=== PATIENT | male | born 1950 | race Caucasian/White ===

== ENCOUNTER 2016-07-11 02:30 | Inpatient (IN) | payer MEDICARE ==
[2016-07-11] VITALS (8 sets, daily range): BP systolic 97–164; BP diastolic 56–77; PULSE 83–99; RESP 15–20; TEMP 97.8–99.7; O2SAT 95–100
[~2016-07-11] VITALS: Ht 172.7 cm; Wt 68.2 kg
[2016-07-11] MEDS ORDERED: ALPR.5 PO (02:59)
[2016-07-11] MEDS ORDERED: LISI40TA PO (02:59)
[2016-07-11] MEDS ORDERED: AMLO5TAB2 PO (02:59)
[2016-07-11] MEDS ORDERED: HYDR-3535 PO (02:59)
[2016-07-11] MEDS ORDERED: MORPHINE SULFATE 4 MG/ML INJ IV PUSH ONE ×2 (03:00→07:15)
[2016-07-11] MEDS ORDERED: AMPICILLIN-SULBACTAM INJ 3 GM in SODIUM CHLORIDE 0.9% INJ 100 ML IV ONE (03:00)
[2016-07-11 03:37] LABS: AUTOMATED NEUTROPHIL # 14.7 TH/MM3 (1.8-7.7); BASOPHIL # 0.1 TH/MM3 (0-0.2); BASOPHIL % 0.4 % (0.0-2.0); EOSINOPHIL # 0.2 TH/MM3 (0-0.4); EOSINOPHIL % 0.8 % (0.0-4.0); HEMATOCRIT 40.1 % (39.0-51.0); HEMO FLAGS DIFF FINAL; LYMPH % 15.1 % (9.0-44.0); LYMPHOCYTE # 2.9 TH/MM3 (1.0-4.8); MEAN CELL VOLUME 95.9 FL (80.0-100.0); MEAN CORPUSCULAR HEMOGLOBIN 32.8 PG (27.0-34.0); MEAN CORPUSCULAR HGB CONC 34.2 % (32.0-36.0); MONO % 6.7 % (0.0-8.0); PLATELET COUNT 249 TH/MM3 (150-450); RED BLOOD COUNT 4.17 MIL/MM3 (4.50-5.90); RED CELL DISTRIBUTION WIDTH 13.6 % (11.6-17.2); WHITE BLOOD COUNT 19.1 TH/MM3 (4.0-11.0)
[2016-07-11 03:53] LABS: ALT (GPT) 21 U/L (12-78); ANION GAP 12 MEQ/L (5-15); AST (GOT) 20 U/L (15-37); BICARBONATE 23.5 MEQ/L (21.0-32.0); BLOOD UREA NITROGEN 15 MG/DL (7-18); CHLORIDE 105 MEQ/L (98-107); GLOMERULAR FILTRATION RATE 49 ML/MIN (>89); POTASSIUM 3.6 MEQ/L (3.5-5.1); SODIUM (NA) 140 MEQ/L (136-145)
[2016-07-11 03:55] LABS: ALKALINE PHOSPHATASE 52 U/L (45-117); TOTAL BILIRUBIN ADULT 0.2 MG/DL (0.2-1.0)
[2016-07-11] MEDS ORDERED: IOHEXOL 350 MG/ML 10 ML VIAL (for RAD DIAG) IV ONE (04:18)
--- NOTE | 2016-07-11 06:11 | RADRPT ---
EXAM DATE/TIME: 07/11/2016 04:14 [facility] COMPARISON: No previous studies available for comparison. INDICATIONS : Trauma, unknown trauma to left lower leg. IV CONTRAST: 100 cc Omnipaque 350 (iohexol) IV RADIATION DOSE: 2.32 CTDIvol (mGy) MEDICAL HISTORY : None SURGICAL HISTORY : None. ENCOUNTER: Initial ACUITY: 1 day PAIN SCALE: 8/10 LOCATION: Left lower leg TECHNIQUE: Volumetric scanning was performed using a multi-row detector CT scanner. The data was post processed with a variety of visualization algorithms including full volume maximum intensity projection, multi -planar sliding thin slab reformation, curved planar reformation, and surface rendering techniques. Using automated exposure control and adjustment of the mA and/or kV according to patient size, radiat ion dose was kept as low as reasonably achievable to obtain optimal diagnostic quality images. FINDINGS: The liver and spleen are free of focal defects. The gallbladder and pancreas demonstrate no abnormali ty. The adrenal glands are normal. The kidneys demonstrate no evidence of solid renal mass or hydrone phrosis. No free fluid or abdominal masses are identified. No para-aortic adenopathy is seen. The aorta is normal in caliber. There is no evidence of aneurysm or dissection. The renal artery orig ins are patent bilaterally. The celiac axis and superior mesenteric artery origins are also patent. Examination of the right lower extremity demonstrates no evidence of inflow stenosis. The common femo ral artery is patent. The superficial femoral artery is widely patent. The popliteal segment is unrem arkable. There is three-vessel runoff to the ankle. Examination of the left lower extremity demonstrates no evidence of inflow stenosis. The common femor al artery is patent. The superficial femoral artery is widely patent. The popliteal segment is unrema rkable. There is three-vessel runoff to the ankle. There is gas within subcutaneous tissues of the le ft lower leg as well as possibly within the muscle characteristics of infection. No bone destruction is seen. CONCLUSION: 1. Unremarkable off the lower extremities. 2. Gas in the soft tissues of the lower leg on the left which is characteristic of infection. This ex tends into the muscular compartment. MRI is recommended for further evaluation if clinically indicate d. Abdullahi Martinez MD on July 11, 2016 at 6:01 Board Certified Radiologist. This report was verified electronically.
--- NOTE | 2016-07-11 07:17 | PD ---
HPI Chief Complaint: Laceration/Skin Injury Time Seen by Provider: 02:56 Travel History International Travel<30 days: No Contact w/Intl Traveler<30days: No Traveled to known affect area: No History of Present Illness HPI Patient is a 66-year-old male brought in by EMS for a wound to his leg. He says he fell tonight sustaining the wound. EMS states there was a large amount of blood on scene and a very angry pitbull that had to be detained before they could enter the house. Patient denies any other injuries. He does admit to drinking tonight. He has no other complaints and the pain to his left leg. PFSH Past Medical History Hypertension: Yes Tetanus Vaccination: Unknown Influenza Vaccination: No Past Surgical History Neurologic Surgery: Yes (TMV) Social History Alcohol Use: Yes Tobacco Use: Yes Substance Use: Yes (WEED) Allergies-Medications (Allergen,Severity, Reaction): Coded Allergies: Erythromycin (Verified Allergy, Unknown, 07/11/16) Reported Meds & Prescriptions Reported Meds & Active Scripts Active Reported Amlodipine (Amlodipine Besylate) 5 Mg Tab 5 Mg PO DAILY Lisinopril 40 Mg Tab 40 Mg PO DAILY Xanax (Alprazolam) 0.5 Mg Tab 0.5 Mg PO BID PRN Lortab (Hydrocodone-Acetaminophen) 10-325 Mg Tab 1 Tab PO Q6H PRN Review of Systems Except as stated in HPI: all other systems reviewed are Neg General / Constitutional: No: Fever, Chills HENT: No: Headaches Cardiovascular: No: Chest Pain or Discomfort Respiratory: No: Shortness of Breath Gastrointestinal: No: Nausea, Vomiting Genitourinary: No: Dysuria Musculoskeletal: Positive: Pain Skin: Positive Other (wound) Neurologic: No: Weakness, Dizziness Physical Exam Narrative GENERAL: Awake and alert in no acute distress. SKIN: Warm and dry. HEAD: Atraumatic. Normocephalic. EYES: Pupils equal and round. No scleral icterus. ENT: Mucous membranes pink and moist. NECK: Trachea midline. No JVD. CARDIOVASCULAR: Regular rate and rhythm. No murmur appreciated. RESPIRATORY: No accessory muscle use. Clear to auscultation. Breath sounds equal bilaterally. MUSCULOSKELETAL: 3 large wounds to the left lower leg. Gaping skin on the lateral side of the left leg with muscle distraction, several exposed tendons. Gaping wound on the medial side of the leg with exposed muscle. Smaller wound to the back of the calf with a serrated skin. Pedal pulses intact. Patient able to dorsiflex and plantarflex the left foot. He is able to wiggle his toes. NEUROLOGICAL: Awake and alert. No obvious cranial nerve deficits. Motor grossly within normal limits. Normal speech. PSYCHIATRIC: Appropriate mood and affect; insight and judgment normal. Data Data Last Documented VS Vital Signs Date Time Temp Pulse Resp B/P Pulse Ox O2 Delivery O2 Flow Rate FiO2 07/11/16 07:32 16 07/11/16 06:14 98.4 88 97/56 100 Room Air Orders Complete Blood Count With Diff (07/11/16 02:54) Comprehensive Metabolic Panel (07/11/16 02:54) Alcohol (Ethanol) (07/11/16 02:54) Cta Runoff W Iv Contrast W 3d (07/11/16 ) Ampicillin-Sulbactam Inj (Unasyn Inj) (07/11/16 03:00) Morphine Inj (Morphine Inj) (07/11/16 03:00) Iohexol 350 Inj (Omnipaque 350 Inj) (07/11/16 04:18) Morphine Inj (Morphine Inj) (07/11/16 07:15) Admit Order (Ed Use Only) (07/11/16 ) Consult Hospitalist (07/11/16 ) Labs Laboratory Tests Test 07/11/16 03:10 White Blood Count 19.1 TH/MM3 Red Blood Count 4.17 MIL/MM3 Hemoglobin 13.7 GM/DL Hematocrit 40.1 % Mean Corpuscular Volume 95.9 FL Mean Corpuscular Hemoglobin 32.8 PG Mean Corpuscular Hemoglobin 34.2 % Concent Red Cell Distribution Width 13.6 % Platelet Count 249 TH/MM3 Mean Platelet Volume 8.5 FL Neutrophils (%) (Auto) 77.0 % Lymphocytes (%) (Auto) 15.1 % Monocytes (%) (Auto) 6.7 % Eosinophils (%) (Auto) 0.8 % Basophils (%) (Auto) 0.4 % Neutrophils # (Auto) 14.7 TH/MM3 Lymphocytes # (Auto) 2.9 TH/MM3 Monocytes # (Auto) 1.3 TH/MM3 Eosinophils # (Auto) 0.2 TH/MM3 Basophils # (Auto) 0.1 TH/MM3 CBC Comment DIFF FINAL Differential Comment Sodium Level 140 MEQ/L Potassium Level 3.6 MEQ/L Chloride Level 105 MEQ/L Carbon Dioxide Level 23.5 MEQ/L Anion Gap 12 MEQ/L Blood Urea Nitrogen 15 MG/DL Creatinine 1.44 MG/DL Estimat Glomerular Filtration 49 ML/MIN Rate Random Glucose 98 MG/DL Calcium Level 7.9 MG/DL Total Bilirubin 0.2 MG/DL Aspartate Amino Transf 20 U/L (AST/SGOT) Alanine Aminotransferase 21 U/L (ALT/SGPT) Alkaline Phosphatase 52 U/L Total Protein 6.3 GM/DL Albumin 3.8 GM/DL Ethyl Alcohol Level 277 MG/DL [facility] Medical Decision Making Medical Screen Exam Complete: Yes Emergency Medical Condition: Yes Medical Record Reviewed: Yes Differential Diagnosis Laceration versus vascular damage versus tendon damage Narrative Course Patient is a 66-year-old male brought in by EMS due to a large wound to his left leg. Exam shows extensive skin and muscle damage with exposed tendons. Patient states it is from a fall, but it looks like a wound sustained by another manner, possibly a bite of an animal. IV established, labs sent. Patient given IV fluids, morphine for pain, Unasyn. Given tetanus vaccine. CTA of the leg performed shows no vascular damage. Wound bandaged. Dr. Yuen from trauma surgery consulted for repair, will take patient to the OR. Diagnosis Primary Impression: Leg wound, left Qualified Code: S81.802A - Leg wound, left, initial encounter Admitting Information Admitting Physician Requests: Admit Condition: Stable Radha Ordaz MD Jul 11, 2016 07:17
[2016-07-11] MEDS ORDERED: DO NOT ADM ANY ANTICOAGULANT DRUGS XX PRN (10:45)
[2016-07-11] MEDS ORDERED: fentaNYL CITRATE 250 MCG/5 ML AMP ONE (10:51)
[2016-07-11] MEDS ORDERED: SODIUM CHLORIDE 0.9% FLUSH 5 ML FLUSH IVF PRN (11:15)
[2016-07-11] MEDS: SODIUM CHLOR 0.9% 1000 ML INJ 1,000 ML IV SCH ×2 (11:46→20:17)
[2016-07-11] MEDS ORDERED: HYDROmorphone HCL PF 1 MG/ML VIAL IVP PRN (12:00)
[2016-07-11] MEDS ORDERED: ENALAPRILAT 1.25 MG/ML VIAL IV PRN (12:00)
[2016-07-11] MEDS ORDERED: ONDANSETRON HCL 4 MG/2 ML VIAL IV PRN (12:00)
[2016-07-11] MEDS ORDERED: MAGNESIUM HYDROXIDE SUSP 30 ML CUP PO PRN (12:00)
[2016-07-11] MEDS ORDERED: ACETAMINOPHEN/HYDROcodone 325 MG/5 MG TAB PO PRN (12:00)
[2016-07-11] MEDS ORDERED: ONDANSETRON HCL 4 MG/2 ML VIAL IV PUSH ONE (12:11)
[2016-07-11] MEDS ORDERED: KETOROLAC TROMETHAMINE 60 MG/2 ML (IM) VIAL IM ONE (12:11)
[2016-07-11] MEDS ORDERED: LACTATED RINGER'S 1000 ML INJ 1,000 ML IV ONE (12:11)
[2016-07-11] MEDS ORDERED: PHENYLEPH/NS 1000 MCG/10 ML SYR IV ONE (12:11)
[2016-07-11] MEDS ORDERED: ePHEDrine/NS 50 MG/5 ML SYR IV ONE (12:11)
[2016-07-11] MEDS ORDERED: PROPOFOL 200 MG/20 ML AMP IV ONE (12:11)
[2016-07-11] MEDS: MULTIVITAMIN INJ 10 ML, THIAMINE INJ 100 MG, FOLIC ACID INJ 1 MG in SODIUM CHLORID 0.9%... IV SCH (12:25)
[2016-07-11] MEDS: PANTOPRAZOLE SODIUM 40 MG VIAL IVP SCH (12:25)
[2016-07-11] MEDS: ACETAMINOPHEN/HYDROcodone 325 MG/5 MG TAB PO PRN ×2 (13:19→20:17)
--- NOTE | 2016-07-11 14:16 | EKG ---
Date Performed: 07/11/2016 Time Performed: 08:22:38 PTAGE: 66 years EKG: Sinus rhythm NORMAL ECG NO PREVIOUS TRACING DOCTOR: Patrice Sainz Interpretating Date/Time 07/11/2016 14:11:18
[2016-07-11] MEDS ORDERED: cloNIDine HCL 0.1 MG TAB PO PRN (15:00)
[2016-07-11] MEDS ORDERED: LORazepam 2 MG/ML VIAL IV PUSH PRN (15:00)
--- NOTE | 2016-07-11 15:01 | PD.CONS ---
HPI Service [facility] Hospitalists Consult Requested By Primary Care Physician Juan Carlos Arhcer M.D. Diagnoses: History of Present Illness Pt is 66 yo with htn who was brought in for left lower extremity open wound with exposed muscle and tendon. Pt says he fell down the stairs. He was drinking etoh. there was an angry pit bull present per EMS and they questioned dog bite. The dog belongs to pt son and pt says there is no way the dog bit him. Pt already taken to OR this AM by trauma surgery and he is back in room with bandages over the wound and underlying wound vac. He reports that he drinks usually 1 6pack beer daily and sometimes more. Says it has been years since he went more than 2 or 3 days w/out etoh. He denies etoh w/d in the past. says he is active and still surfs. Review of Systems Other left leg open wound fall down stairwell Past Family Social History Past Medical History htn anxiety chronic back pain scc skin with removal Reported Medications Amlodipine (Amlodipine Besylate) 5 Mg Tab 5 Mg PO DAILY Lisinopril 40 Mg Tab 40 Mg PO DAILY Xanax (Alprazolam) 0.5 Mg Tab 0.5 Mg PO BID PRN Lortab (Hydrocodone-Acetaminophen) 10-325 Mg Tab 1 Tab PO Q6H PRN Allergies: Coded Allergies: Erythromycin (Verified Allergy, Unknown, 07/11/16) Family History nc Social History tob use. had stopped for 30yrs then resumed 2or3 yrs ago at least a 6pk beer daily Physical Exam Vital Signs heent neg heart reg lung cta abd s/nt ext left lower ext below the knee heavily wrapped with wound vac under the bandages. Vital Signs Date Time Temp Pulse Resp B/P Pulse Ox O2 Delivery O2 Flow Rate FiO2 07/11/16 14:19 17 07/11/16 11:45 97.8 89 18 117/61 96 07/11/16 11:15 90 14 120/66 95 Room Air 07/11/16 11:00 93 14 123/65 93 Room Air 07/11/16 10:45 101 14 107/63 94 Room Air 07/11/16 10:42 97.9 90 14 107/62 94 Room Air 07/11/16 08:00 85 15 110/63 97 Room Air 07/11/16 07:32 16 07/11/16 06:14 98.4 88 18 97/56 100 Room Air 07/11/16 06:14 84 18 07/11/16 03:55 18 07/11/16 03:13 97 18 117/73 99 Room Air 07/11/16 02:46 83 18 164/65 95 07/11/16 02:46 85 22 07/11/16 02:37 98.7 90 18 147/77 98 Laboratory Laboratory Tests Test 07/11/16 03:10 White Blood Count 19.1 Red Blood Count 4.17 Hemoglobin 13.7 Hematocrit 40.1 Mean Corpuscular Volume 95.9 Mean Corpuscular Hemoglobin 32.8 Mean Corpuscular Hemoglobin 34.2 Concent Red Cell Distribution Width 13.6 Platelet Count 249 Mean Platelet Volume 8.5 Neutrophils (%) (Auto) 77.0 Lymphocytes (%) (Auto) 15.1 Monocytes (%) (Auto) 6.7 Eosinophils (%) (Auto) 0.8 Basophils (%) (Auto) 0.4 Neutrophils # (Auto) 14.7 Lymphocytes # (Auto) 2.9 Monocytes # (Auto) 1.3 Eosinophils # (Auto) 0.2 Basophils # (Auto) 0.1 CBC Comment DIFF FINAL Differential Comment Sodium Level 140 Potassium Level 3.6 Chloride Level 105 Carbon Dioxide Level 23.5 Anion Gap 12 Blood Urea Nitrogen 15 Creatinine 1.44 Estimat Glomerular Filtration 49 Rate Random Glucose 98 Calcium Level 7.9 Total Bilirubin 0.2 Aspartate Amino Transf 20 (AST/SGOT) Alanine Aminotransferase 21 (ALT/SGPT) Alkaline Phosphatase 52 Total Protein 6.3 Albumin 3.8 Ethyl Alcohol Level 277 Result Diagram: 07/11/1630907/11/16309 Assessment and Plan Problem List: (1) Leg wound, left Status: Acute Plan: Large left lower ext open wound exposed tendon /muscle after "fall down stairwell" pt denies dogbite which was questioned on scene by EMS Already taken to OR for washout and woundvac Pt was drinking etoh at time of accident He drinks excessively on daily basis...denies dt's in past ivf/vitamins dt precaution. librium and prn ativan wounds per gen surg dvt prophylaxis. (2) Alcohol abuse Status: Acute Plan: see above (3) HTN (hypertension) Status: Chronic Plan: resume home meds as tolerated Rogelio Barrera MD Jul 11, 2016 15:01
[2016-07-11] MEDS ORDERED: AMPICILLIN-SULBACTAM INJ 3 GM VIAL IM SCH (15:45)
[2016-07-11] MEDS: AMPICILLIN/SULBAC 3 GM/NS 100 ML IV SCH ×4 (16:17→22:06)
[2016-07-11] MEDS: chlordiazePOXIDE 25 MG CAP PO SCH (16:17)
[2016-07-11] MEDS: DOCUSATE SODIUM 100 MG CAP PO SCH (20:17)
--- NOTE | 2016-07-11 20:24 | MH ---
cc: ACE [facility]COSTA DATE OF ADMISSION: 07/11/2016 HISTORY OF PRESENT ILLNESS: This is a patient who fell down a flight of stairs injuring his left leg. The trauma service was requested for management of the wound. The patient states that he drank, lost balance and fell down the stairs. He denies loss of consciousness. He denies paresthesias. He has no chest pains or shortness of breath. No abdominal pain. PAST MEDICAL HISTORY: His past medical history is significant for: 1. Hypertension. 2. Chronic back pain. 3. Anxiety. MEDICATIONS: He is on medications at home that include: 1. Xanax. 2. Lortab. 3. Lisinopril. 4. Amlodipine. ALLERGIES: ERYTHROMYCIN. SOCIAL HISTORY: He denies tobacco use and quit thirty years ago. FAMILY HISTORY Noncontributory. REVIEW OF SYSTEMS: Review of systems significant for above. All other review negative. PHYSICAL EXAMINATION: GENERAL: On exam he is laying ON A stretcher in no acute distress. HEAD, EYES, EARS, NOSE, THROAT: His pupils are equal and reactive. NECK: His trachea is midline. Neck without JVD. LUNGS: His respirations clear. CARDIOVASCULAR: Regular. GASTROINTESTINAL: Abdomen soft and nontender. MUSCULOSKELETAL: He has a wound TO HIS left leg, a complex wound with exposed muscle and tendon. NEUROLOGICAL: Grossly intact. LABORATORY DATA: The patient's hemoglobin is 13, hematocrit 40, white blood cell count of 19. Creatinine is 1.4. IMAGING STUDIES: CT of his left lower extremity with runoff is unremarkable. ASSESSMENT: This is a patient with traumatic injury to his left leg. PLAN: We will take him to the operating room for washout and closure. It was explained to the patient that there are areas of skin that may not be viable. The risks of infection were explained, risk of bleeding, risk of the nerve injury, all explained to the patient. He verbalized understanding and would like to proceed. MD RACHELL Simon/LOUISE /7:53 PM /8:15 PM [facility] CENTERGloria
[2016-07-12] VITALS: BP 108/58; PULSE 94; RESP 18; TEMP 101.2; O2SAT 96
[2016-07-12] MEDS: ACETAMINOPHEN/HYDROcodone 325 MG/5 MG TAB PO PRN ×6 (00:41→22:25)
[2016-07-12 04:00] VITALS: TEMP 101.3
[2016-07-12] MEDS: SODIUM CHLOR 0.9% 1000 ML INJ 1,000 ML IV SCH ×2 (05:21→17:17)
[2016-07-12] MEDS: AMPICILLIN/SULBAC 3 GM/NS 100 ML IV SCH ×8 (05:21→22:25)
[2016-07-12 05:48] LABS: AUTOMATED NEUTROPHIL # 5.6 TH/MM3 (1.8-7.7); BASOPHIL % 0.5 % (0.0-2.0); EOSINOPHIL # 0.1 TH/MM3 (0-0.4); EOSINOPHIL % 1.3 % (0.0-4.0); HEMATOCRIT 27.3 % (39.0-51.0); HEMO FLAGS DIFF FINAL; LYMPHOCYTE # 1.7 TH/MM3 (1.0-4.8); MEAN CELL VOLUME 97.3 FL (80.0-100.0); MEAN CORPUSCULAR HGB CONC 33.9 % (32.0-36.0); MONO % 11.3 % (0.0-8.0); NEUT % 66.9 % (16.0-70.0); PLATELET COUNT 151 TH/MM3 (150-450); RED CELL DISTRIBUTION WIDTH 13.5 % (11.6-17.2); WHITE BLOOD COUNT 8.4 TH/MM3 (4.0-11.0)
--- NOTE | 2016-07-12 06:04 | RADRPT ---
EXAM DATE/TIME: 07/12/2016 04:48 [facility] COMPARISON: No previous studies available for comparison. INDICATIONS : Shortness of breath, possible pulmonary disease. MEDICAL HISTORY : None. SURGICAL HISTORY : None. ENCOUNTER: Initial ACUITY: 2 days PAIN SCORE: 0/10 LOCATION: Bilateral chest FINDINGS: The cardiac silhouette is normal in transverse diameter. The lungs are free of acute parenchymal opac ity. No effusions are identified. There is eventration of the right hemidiaphragm. CONCLUSION: 1. No acute cardiopulmonary disease. Abdullahi Martinez MD on July 12, 2016 at 6:02 Board Certified Radiologist. This report was verified electronically.
[2016-07-12 06:12] LABS: ALKALINE PHOSPHATASE 40 U/L (45-117); ALT (GPT) 17 U/L (12-78); ANION GAP 6 MEQ/L (5-15); AST (GOT) 29 U/L (15-37); BICARBONATE 26.7 MEQ/L (21.0-32.0); BLOOD UREA NITROGEN 11 MG/DL (7-18); CHLORIDE 112 MEQ/L (98-107); GLOMERULAR FILTRATION RATE 69 ML/MIN (>89); POTASSIUM 4.1 MEQ/L (3.5-5.1); SODIUM (NA) 145 MEQ/L (136-145); TOTAL BILIRUBIN ADULT 0.5 MG/DL (0.2-1.0)
[2016-07-12 08:00] VITALS: BP 110/66; PULSE 88; RESP 17; TEMP 98.2; O2SAT 95
[2016-07-12 08:56] LABS: HEMATOCRIT 31.2 % (39.0-51.0); MEAN CELL VOLUME 97.1 FL (80.0-100.0); MEAN CORPUSCULAR HEMOGLOBIN 32.8 PG (27.0-34.0); MEAN CORPUSCULAR HGB CONC 33.8 % (32.0-36.0); PLATELET COUNT 170 TH/MM3 (150-450); RED BLOOD COUNT 3.22 MIL/MM3 (4.50-5.90); RED CELL DISTRIBUTION WIDTH 13.2 % (11.6-17.2); REVIEW FLAG FINAL; WHITE BLOOD COUNT 10.7 TH/MM3 (4.0-11.0)
[2016-07-12 09:12] LABS: BICARBONATE 25.3 MEQ/L (21.0-32.0)
[2016-07-12] MEDS: ENOXAPARIN SODIUM 30 MG/0.3 ML SYRINGE SQ SCH ×2 (09:18→19:47)
[2016-07-12] MEDS: DOCUSATE SODIUM 100 MG CAP PO SCH ×2 (09:18→19:46)
[2016-07-12] MEDS: chlordiazePOXIDE 25 MG CAP PO SCH ×3 (09:18→17:16)
[2016-07-12 12:00] VITALS: BP 121/72; PULSE 89; RESP 17; TEMP 99.9; O2SAT 99
--- NOTE | 2016-07-12 12:48 | HHI.PR ---
Subjective Subjective Notes PTD: 1 Patient sitting on the side of the bed, LEFT leg is painful. He states he is not able to put put his full weight on his LEFT foot yet. Additionally he has limited mobility, he has difficulty flexing left foot. Patient describes great worry about having a permanent disability due to this injury Objective Vitals/I&O Vital Signs Date Time Temp Pulse Resp B/P Pulse Ox O2 Delivery O2 Flow Rate FiO2 07/12/16 12:00 99.9 89 17 121/72 99 07/11/16 11:15 Room Air Labs Laboratory Tests Test 07/12/16 07/12/16 04:39 08:42 White Blood Count 8.4 10.7 Red Blood Count 2.80 3.22 Hemoglobin 9.2 10.6 Hematocrit 27.3 31.2 Mean Corpuscular Volume 97.3 97.1 Mean Corpuscular Hemoglobin 33.0 32.8 Mean Corpuscular Hemoglobin 33.9 33.8 Concent Red Cell Distribution Width 13.5 13.2 Platelet Count 151 170 Mean Platelet Volume 9.0 8.5 Neutrophils (%) (Auto) 66.9 Lymphocytes (%) (Auto) 20.0 Monocytes (%) (Auto) 11.3 Eosinophils (%) (Auto) 1.3 Basophils (%) (Auto) 0.5 Neutrophils # (Auto) 5.6 Lymphocytes # (Auto) 1.7 Monocytes # (Auto) 1.0 Eosinophils # (Auto) 0.1 Basophils # (Auto) 0.0 CBC Comment DIFF FINAL Differential Comment Sodium Level 145 143 Potassium Level 4.1 4.0 Chloride Level 112 111 Carbon Dioxide Level 26.7 25.3 Anion Gap 6 7 Blood Urea Nitrogen 11 10 Creatinine 1.07 1.02 Estimat Glomerular Filtration 69 73 Rate Random Glucose 111 93 Calcium Level 7.8 7.8 Total Bilirubin 0.5 Aspartate Amino Transf 29 (AST/SGOT) Alanine Aminotransferase 17 (ALT/SGPT) Alkaline Phosphatase 40 Total Protein 4.7 Albumin 2.5 Radiology Last Impressions Aorta w/Runoff CTA 07/11/16 0000 Signed Impressions: Service Date/Time: Monday, July 11, 2016 04:14 - CONCLUSION: 1. Unremarkable off the lower extremities. 2. Gas in the soft tissues of the lower leg on the left which is characteristic of infection. This extends into the muscular compartment. MRI is recommended for further evaluation if clinically indicated. Abdullahi Martinez MD Narrative Exam GENERAL: This is a 66-year-old male sitting on the side of the bed in no distress. SKIN: Warm and dry. LEFT lower extremity with wound VAC noted to LEFT inner calf. Outer calf with extensive wound with staple line (in the shape of a backwards question juan.) [place] in place, with some clear, red liquid drainage leaking from wound. HEAD: Atraumatic. Normocephalic. EYES: PERRLA ENT: No nasal bleeding or discharge. Mucous membranes pink and moist. NECK: Trachea midline. No JVD. CARDIOVASCULAR: Regular rate and rhythm. RESPIRATORY: No accessory muscle use. Lungs are clear to auscultation. Breath sounds equal bilaterally. No distress or dyspnea. GASTROINTESTINAL: BS + x 4 quads. Abdomen soft, non-tender, nondistended. MUSCULOSKELETAL: Extremities without cyanosis, or edema. Left calf is definitely swollen compared to the right . + peripheral pulses x 4 extremities. Warm with good capillary refill and sensation. MAEW. NEUROLOGICAL: Awake and alert. Normal speech and pattern. A/P Assessment and Plan [place]: This is a 66-year-old male who states he sustained a fall down the stairs. Positive EtOH = 277 INJURIES: LARGE LEFT lower leg open wound with exposed tendon / muscle - ( extensive damage - but no vascular damage.) Consults: Hospitalist Diet: Regular diet. Tolerating po diet. Encourage good po intake with each meal. Pulmonary: Encourage good pulmonary toileting. IS and acapella at bedside and pt encouraged to use. Rationale for use explained to patient, and verbalized understanding. Added EZpap. (Patient had a postop fever; additional pulmonary toileting exercises will assist with possible atelectasis) PAIN Management: [place]. Dilaudid IV for breakthrough pain. (Ativan and Librium ) Activity: OOB ad ilya. (WBAT LLE) PT ordered. GI prophylaxis: Pepcid HS Bowel regimen: Colace and MOM. DVT prophylaxis: Mechanical VTE with SCDs. Chemical management with Lovenox SQ. DC Planning: Case management consulted for assistance with final discharge disposition. He may need home health nursing with dressing changes once discharged. Emotional support provided to patient and family at bedside and plan of care discussed. Discussed with RN at bedside Patient is hemodynamically stable and being managed on the med/surg floor. Discussed case with plastic surgery Dr. Mascorro and Orthopedic Dr. Hannon both feel injury does not require their area of speciality The exam, history, and the medical decision-making described in the above note were completed with the assistance of the mid-level provider. I reviewed and agree with the findings presented. I attest that I had a [id number] encounter with the patient on the same day, and personally performed and documented my assessment and findings in the medical record. Jessica Ramos Jul 12, 2016 12:48 Michael Yuen MD Jul 14, 2016 13:24
--- NOTE | 2016-07-12 12:51 | HHI.PR ---
Subjective Remarks pt standing in room when I arrived denies shaking/tremors. Objective Vitals heart reg lung cta abd s/nt ext left lower leg wrapped/wound vac Vital Signs Date Time Temp Pulse Resp B/P Pulse Ox O2 Delivery O2 Flow Rate FiO2 07/12/16 12:00 99.9 89 17 121/72 99 07/12/16 08:00 98.2 88 17 110/66 95 07/12/16 04:00 101.3 07/12/16 00:00 101.2 94 18 108/58 96 07/11/16 20:00 99.7 97 20 115/67 100 07/11/16 16:00 98.0 99 16 103/57 96 07/11/16 14:19 17 07/11/16 07/11/16 07/12/16 15:00 23:00 07:00 Intake Total 1376 ml 1663 ml 1149 ml Output Total 20 ml 1060 ml 920 ml Balance 1356 ml 603 ml 229 ml Intake Oral 960 ml 240 ml IV Total 376 ml 703 ml 909 ml Other 1000 ml Output Urine Total 1050 ml 900 ml Drainage Total 0 ml 10 ml 20 ml Estimated Blood Loss 20 ml Other 0 ml # Bowel Movements 0 0 Result Diagram: 07/12/16 0842 07/12/16 0842 A/P Problem List: (1) Leg wound, left Status: Acute Plan: Large left lower ext open wound exposed tendon /muscle after "fall down stairwell" pt denies dogbite which was questioned on scene by EMS Already taken to OR for washout and woundvac on07/11 Pt was drinking etoh at time of accident He drinks excessively on daily basis...denies dt's in past ivf/vitamins on broad abx coverage with unasyn. wbc trending down dt precaution. librium and prn ativan wounds and wound vac per gen surg dvt prophylaxis. (2) Alcohol abuse Status: Acute Plan: see above (3) HTN (hypertension) Status: Chronic Plan: resume home meds as tolerated Rogelio Barrera MD Jul 12, 2016 12:51
[2016-07-12] MEDS: PANTOPRAZOLE SODIUM 40 MG VIAL IVP SCH (12:55)
[2016-07-12] MEDS: MULTIVITAMIN INJ 10 ML, THIAMINE INJ 100 MG, FOLIC ACID INJ 1 MG in SODIUM CHLORID 0.9%... IV SCH (14:25)
[2016-07-12 16:00] VITALS: BP 118/63; PULSE 85; RESP 17; TEMP 98.3; O2SAT 94
[2016-07-12] MEDS: FAMOTIDINE 20 MG TAB PO SCH (19:46)
[2016-07-12 20:00] VITALS: BP 117/63; PULSE 88; RESP 19; TEMP 100; O2SAT 97
[2016-07-13] VITALS: BP 133/68; PULSE 94; RESP 18; TEMP 101; O2SAT 97
[2016-07-13 04:00] VITALS: TEMP 99.6
[2016-07-13] MEDS: AMPICILLIN/SULBAC 3 GM/NS 100 ML IV SCH ×8 (04:25→21:40)
[2016-07-13] MEDS: SODIUM CHLOR 0.9% 1000 ML INJ 1,000 ML IV SCH (04:25)
[2016-07-13] MEDS: ACETAMINOPHEN/HYDROcodone 325 MG/5 MG TAB PO PRN ×5 (04:26→21:48)
[2016-07-13 08:00] VITALS: BP 118/67; PULSE 77; RESP 17; TEMP 98.9; O2SAT 97
[2016-07-13] MEDS ORDERED: ACETAMINOPHEN 325 MG TAB PO PRN (08:30)
[2016-07-13] MEDS: chlordiazePOXIDE 25 MG CAP PO SCH ×3 (08:44→17:03)
[2016-07-13] MEDS: DOCUSATE SODIUM 100 MG CAP PO SCH ×2 (08:44→21:39)
[2016-07-13] MEDS: ENOXAPARIN SODIUM 30 MG/0.3 ML SYRINGE SQ SCH ×2 (08:46→21:39)
--- NOTE | 2016-07-13 10:37 | HHI.PR ---
Subjective Subjective Notes PTD: 2 Resting in bed, but arouses to staff and room. He is still complaining of pain in the left leg. He is still having difficulty putting weight on it or flexing it. Objective Vitals/I&O Vital Signs Date Time Temp Pulse Resp B/P Pulse Ox O2 Delivery O2 Flow Rate FiO2 07/13/16 08:00 98.9 77 17 118/67 97 07/11/16 11:15 Room Air Labs Laboratory Tests Test 07/11/16 07/12/16 07/12/16 03:10 04:39 08:42 Ethyl Alcohol Level 277 MG/DL Neutrophils (%) (Auto) 66.9 % Lymphocytes (%) (Auto) 20.0 % Monocytes (%) (Auto) 11.3 % Eosinophils (%) (Auto) 1.3 % Basophils (%) (Auto) 0.5 % Neutrophils # (Auto) 5.6 TH/MM3 Lymphocytes # (Auto) 1.7 TH/MM3 Monocytes # (Auto) 1.0 TH/MM3 Eosinophils # (Auto) 0.1 TH/MM3 Basophils # (Auto) 0.0 TH/MM3 CBC Comment DIFF FINAL Differential Comment Total Bilirubin 0.5 MG/DL Aspartate Amino Transf 29 U/L (AST/SGOT) Alanine Aminotransferase 17 U/L (ALT/SGPT) Alkaline Phosphatase 40 U/L Total Protein 4.7 GM/DL Albumin 2.5 GM/DL White Blood Count 10.7 TH/MM3 Red Blood Count 3.22 MIL/MM3 Hemoglobin 10.6 GM/DL Hematocrit 31.2 % Mean Corpuscular Volume 97.1 FL Mean Corpuscular Hemoglobin 32.8 PG Mean Corpuscular Hemoglobin 33.8 % Concent Red Cell Distribution Width 13.2 % Platelet Count 170 TH/MM3 Mean Platelet Volume 8.5 FL Sodium Level 143 MEQ/L Potassium Level 4.0 MEQ/L Chloride Level 111 MEQ/L Carbon Dioxide Level 25.3 MEQ/L Anion Gap 7 MEQ/L Blood Urea Nitrogen 10 MG/DL Creatinine 1.02 MG/DL Estimat Glomerular Filtration 73 ML/MIN Rate Random Glucose 93 MG/DL Calcium Level 7.8 MG/DL Radiology Last Impressions Aorta w/Runoff CTA 07/11/16 0000 Signed Impressions: Service Date/Time: Monday, July 11, 2016 04:14 - CONCLUSION: 1. Unremarkable off the lower extremities. 2. Gas in the soft tissues of the lower leg on the left which is characteristic of infection. This extends into the muscular compartment. MRI is recommended for further evaluation if clinically indicated. Abdullahi Martinez MD Narrative Exam GENERAL: This is a 66-year-old male in bed in no distress. SKIN: Warm and dry. LEFT lower extremity with wound VAC noted to LEFT inner calf. Large dressing in place and wrapped with Tony. CDI. HEAD: Atraumatic. Normocephalic. EYES: PERRLA ENT: No nasal bleeding or discharge. Mucous membranes pink and moist. NECK: Trachea midline. No JVD. CARDIOVASCULAR: Regular rate and rhythm. RESPIRATORY: No accessory muscle use. Lungs are clear to auscultation. Breath sounds equal bilaterally. No distress or dyspnea. GASTROINTESTINAL: BS + x 4 quads. Abdomen soft, non-tender, nondistended. MUSCULOSKELETAL: Extremities without cyanosis, or edema. Left calf is definitely swollen compared to the right . + peripheral pulses x 4 extremities. Warm with good capillary refill and sensation. MAEW. NEUROLOGICAL: Awake and alert. Normal speech and pattern. A/P Problem List: (1) Alcohol abuse (2) Weakness of left foot (3) Leg wound, left (4) HTN (hypertension) Assessment and Plan [place]: This is a 66-year-old male who states he sustained a fall down the stairs. Positive EtOH = 277 INJURIES: LARGE LEFT lower leg open wound with exposed tendon / muscle - ( extensive damage - but no vascular damage.) Consults: Hospitalist Diet: Regular diet. Tolerating po diet. Encourage good po intake with each meal. Pulmonary: Encourage good pulmonary toileting. IS and acapella at bedside and pt encouraged to use. Rationale for use explained to patient, and verbalized understanding. Added EZpap. (Patient had a postop fever; additional pulmonary toileting exercises will assist with possible atelectasis) PAIN Management: [place]. Dilaudid IV for breakthrough pain. (Ativan and Librium ) Activity: OOB ad ilya. (WBAT LLE) PT ordered. GI prophylaxis: Pepcid HS Bowel regimen: Colace and MOM. DVT prophylaxis: Mechanical VTE with SCDs. Chemical management with Lovenox SQ. DC Planning: Case management consulted for assistance with final discharge disposition. He may need home health nursing with dressing changes once discharged. (Completed wound VAC application.) Wound VAC dressing changes to left lower leg Wednesday and . (Spoke with RN and she will change wound VAC dressing today) AVX: Ampicillin IV and added Cleocin 3 times a day. Emotional support provided to patient and family at bedside and plan of care discussed. Discussed with RN at bedside Patient is hemodynamically stable and being managed on the med/surg floor. Problem Qualifiers (1) Leg wound, left: Qualified Code: S81.802A - Leg wound, left, initial encounter (2) HTN (hypertension): Qualified Code: I10 - Essential hypertension Jessica Ramos Jul 13, 2016 10:37
--- NOTE | 2016-07-13 10:43 | HHI.FF ---
Face to Face Verification Diagnosis: (1) Alcohol abuse (2) HTN (hypertension) (3) Visit for suture removal (4) Leg wound, left Physical Therapy Order: Evaluate and Treat, Improve ambulation, Strength and gait training Occupational Therapy Order: Evaluate and Treat, Gross motor coordination, Fine motor coordination Home Health Nursing Order: Medical education Signs/symptoms of disease process Wound care and dressing changes (needs wound VAC changed to LEFT lower extremity WEDNESDAY and WEDNESDAY) Nursing assessment with vital signs I have seen patient Luis Felipe Melo on 07/13/16. My clinical findings support the need for the requested home health care services because: Ltd mobility - disease progression Deconditioned w/ increased weakness Limited ability to care for self High risk of falls Infection w/ risk of complications I certify that my clinical findings support that this patient is homebound because: Post-op weakness Unsteady gait/balance Fxj-[id number]-fjezbibo bed/chair Unable to use public transportation Jessica Ramos Jul 13, 2016 10:43
[2016-07-13] MEDS ORDERED: WALKER WHEELS/F1 MIS (10:45)
[2016-07-13 12:00] VITALS: BP 137/72; PULSE 94; RESP 18; TEMP 98.1; O2SAT 98
[2016-07-13] MEDS: CLINDAMYCIN 150 MG CAP PO SCH ×2 (12:50→21:39)
[2016-07-13] MEDS: MULTIVITAMIN INJ 10 ML, THIAMINE INJ 100 MG, FOLIC ACID INJ 1 MG in SODIUM CHLORID 0.9%... IV SCH (12:51)
--- NOTE | 2016-07-13 13:51 | HHI.PR ---
Subjective Remarks Pt febrile today with Tmax 101 at midnight last night. No new complaints Pt ambulated with PT today and states that he was able to apply small amount of weight to the left leg which is am improvement. Objective Vitals Vital Signs Date Time Temp Pulse Resp B/P Pulse Ox O2 Delivery O2 Flow Rate FiO2 07/13/16 12:00 98.1 94 18 137/72 98 07/13/16 08:00 98.9 77 17 118/67 97 07/13/16 04:00 99.6 07/13/16 00:00 101.0 94 18 133/68 97 07/12/16 20:00 100.0 88 19 117/63 97 07/12/16 16:00 98.3 85 17 118/63 94 07/12/16 07/12/16 07/13/16 15:00 23:00 07:00 Intake Total 1347 ml 840 ml 1126 ml Output Total 975 ml 1800 ml 625 ml Balance 372 ml -960 ml 501 ml Intake Oral 480 ml 240 ml 240 ml IV Total 867 ml 600 ml 886 ml Output Urine Total 900 ml 1800 ml 600 ml Drainage Total 75 ml 25 ml # Bowel Movements 0 0 0 Result Diagram: 07/12/16 0842 07/12/16 0842 Other Results Laboratory Tests Test 07/12/16 07/12/16 04:39 08:42 White Blood Count 8.4 TH/MM3 10.7 TH/MM3 Red Blood Count 2.80 MIL/MM3 3.22 MIL/MM3 Hemoglobin 9.2 GM/DL 10.6 GM/DL Hematocrit 27.3 % 31.2 % Mean Corpuscular Volume 97.3 FL 97.1 FL Mean Corpuscular Hemoglobin 33.0 PG 32.8 PG Mean Corpuscular Hemoglobin 33.9 % 33.8 % Concent Red Cell Distribution Width 13.5 % 13.2 % Platelet Count 151 TH/MM3 170 TH/MM3 Mean Platelet Volume 9.0 FL 8.5 FL Neutrophils (%) (Auto) 66.9 % Lymphocytes (%) (Auto) 20.0 % Monocytes (%) (Auto) 11.3 % Eosinophils (%) (Auto) 1.3 % Basophils (%) (Auto) 0.5 % Neutrophils # (Auto) 5.6 TH/MM3 Lymphocytes # (Auto) 1.7 TH/MM3 Monocytes # (Auto) 1.0 TH/MM3 Eosinophils # (Auto) 0.1 TH/MM3 Basophils # (Auto) 0.0 TH/MM3 CBC Comment DIFF FINAL Differential Comment Sodium Level 145 MEQ/L 143 MEQ/L Potassium Level 4.1 MEQ/L 4.0 MEQ/L Chloride Level 112 MEQ/L 111 MEQ/L Carbon Dioxide Level 26.7 MEQ/L 25.3 MEQ/L Anion Gap 6 MEQ/L 7 MEQ/L Blood Urea Nitrogen 11 MG/DL 10 MG/DL Creatinine 1.07 MG/DL 1.02 MG/DL Estimat Glomerular Filtration 69 ML/MIN 73 ML/MIN Rate Random Glucose 111 MG/DL 93 MG/DL Calcium Level 7.8 MG/DL 7.8 MG/DL Total Bilirubin 0.5 MG/DL Aspartate Amino Transf 29 U/L (AST/SGOT) Alanine Aminotransferase 17 U/L (ALT/SGPT) Alkaline Phosphatase 40 U/L Total Protein 4.7 GM/DL Albumin 2.5 GM/DL Imaging Last Impressions Chest X-Ray 07/12/16 0000 Signed Impressions: Service Date/Time: Tuesday, July 12, 2016 04:48 - CONCLUSION: 1. No acute cardiopulmonary disease. Abdullahi Martinez MD Aorta w/Runoff CTA 07/11/16 0000 Signed Impressions: Service Date/Time: Monday, July 11, 2016 04:14 - CONCLUSION: 1. Unremarkable off the lower extremities. 2. Gas in the soft tissues of the lower leg on the left which is characteristic of infection. This extends into the muscular compartment. MRI is recommended for further evaluation if clinically indicated. Abdullahi Martinez MD Objective Remarks General: NAD, AAOx3 Chest: CTA bilaterally Cardiac: Regular Abd: +BS, soft ND/NT Ext: Wound vac in place on LLE A/P Problem List: (1) Leg wound, left Status: Acute Plan: - Large left lower ext open wound exposed tendon/muscle after "fall down stairwell" - Pt denies dog bite which was questioned on scene by EMS - Pt underwent washout and wound vac placement on 07/11/16 - Pt was drinking EtOH at time of accident - He drinks excessively on daily basis but denies DT's in past - Pt is on broad spectrum coverage with Unasyn and Cleocin - IVF/Thiamin/Folic acid/MVI - Pt WBC count trending down - Librium and prn Ativan - Wounds and wound vac per Surg - Pt is planned for HHC/PT at discharge. - DVT prophylaxis. (2) Alcohol abuse Status: Acute Plan: - See above (3) HTN (hypertension) Status: Chronic Plan: - BP stable off home meds - Clonidine PRN Assessment and Plan Patient examined. Assessment and plan formulated with Nata Razo PA-C. I agree with the above. Problem Qualifiers (1) Leg wound, left: Qualified Code: S81.802A - Leg wound, left, initial encounter (2) HTN (hypertension): Qualified Code: I10 - Essential hypertension Nata Razo Jul 13, 2016 13:51 Tima Santo DO Jul 23, 2016 22:21
[2016-07-13 16:00] VITALS: BP 116/68; PULSE 82; RESP 17; TEMP 99.1; O2SAT 97
[2016-07-13 20:16] VITALS: BP 123/64; PULSE 90; RESP 20; TEMP 98.6; O2SAT 92
[2016-07-13] MEDS: FAMOTIDINE 20 MG TAB PO SCH (21:39)
[2016-07-14 00:07] VITALS: BP 106/60; PULSE 89; RESP 17; TEMP 99.3; O2SAT 97
[2016-07-14 04:11] LABS: AUTOMATED NEUTROPHIL # 5.1 TH/MM3 (1.8-7.7); BASOPHIL % 0.4 % (0.0-2.0); EOSINOPHIL # 0.4 TH/MM3 (0-0.4); EOSINOPHIL % 4.7 % (0.0-4.0); HEMATOCRIT 25.7 % (39.0-51.0); HEMO FLAGS DIFF FINAL; LYMPHOCYTE # 1.6 TH/MM3 (1.0-4.8); MEAN CELL VOLUME 97.4 FL (80.0-100.0); MEAN CORPUSCULAR HEMOGLOBIN 33.5 PG (27.0-34.0); MEAN CORPUSCULAR HGB CONC 34.4 % (32.0-36.0); MONO % 9.1 % (0.0-8.0); NEUT % 65.8 % (16.0-70.0); PLATELET COUNT 150 TH/MM3 (150-450); RED BLOOD COUNT 2.64 MIL/MM3 (4.50-5.90); RED CELL DISTRIBUTION WIDTH 13.3 % (11.6-17.2); WHITE BLOOD COUNT 7.8 TH/MM3 (4.0-11.0)
[2016-07-14] MEDS: AMPICILLIN/SULBAC 3 GM/NS 100 ML IV SCH ×8 (04:14→21:50)
[2016-07-14 04:42] LABS: BICARBONATE 28.9 MEQ/L (21.0-32.0); MAGNESIUM 1.9 MG/DL (1.5-2.5); POTASSIUM 3.6 MEQ/L (3.5-5.1)
[2016-07-14] MEDS: CLINDAMYCIN 150 MG CAP PO SCH ×3 (05:54→21:49)
[2016-07-14] MEDS: ACETAMINOPHEN/HYDROcodone 325 MG/5 MG TAB PO PRN ×5 (05:54→21:50)
[2016-07-14 08:00] VITALS: BP 106/62; PULSE 73; RESP 16; TEMP 99.4; O2SAT 98
[2016-07-14] MEDS ORDERED: LACTULOSE SYRUP 20 GM/30 ML CUP PO ONE (08:15)
[2016-07-14] MEDS: DOCUSATE SODIUM 100 MG CAP PO SCH ×2 (09:25→21:49)
[2016-07-14] MEDS: ENOXAPARIN SODIUM 30 MG/0.3 ML SYRINGE SQ SCH ×2 (09:25→21:49)
[2016-07-14] MEDS: chlordiazePOXIDE 25 MG CAP PO SCH ×3 (09:25→16:28)
--- NOTE | 2016-07-14 11:52 | HHI.PR ---
Subjective Subjective Notes PTD: 3 Sitting OOB in a chair with feet elevated on the bed. Still requiring pain meds for comfort q 4 hrs. LEFT dressing removed for examination of the wound. Objective Vitals/I&O Vital Signs Date Time Temp Pulse Resp B/P Pulse Ox O2 Delivery O2 Flow Rate FiO2 07/14/16 08:00 99.4 73 16 106/62 98 07/11/16 11:15 Room Air Labs Laboratory Tests Test 07/14/16 03:14 White Blood Count 7.8 Red Blood Count 2.64 Hemoglobin 8.8 Hematocrit 25.7 Mean Corpuscular Volume 97.4 Mean Corpuscular Hemoglobin 33.5 Mean Corpuscular Hemoglobin 34.4 Concent Red Cell Distribution Width 13.3 Platelet Count 150 Mean Platelet Volume 9.4 Neutrophils (%) (Auto) 65.8 Lymphocytes (%) (Auto) 20.0 Monocytes (%) (Auto) 9.1 Eosinophils (%) (Auto) 4.7 Basophils (%) (Auto) 0.4 Neutrophils # (Auto) 5.1 Lymphocytes # (Auto) 1.6 Monocytes # (Auto) 0.7 Eosinophils # (Auto) 0.4 Basophils # (Auto) 0.0 CBC Comment DIFF FINAL Differential Comment Sodium Level 143 Potassium Level 3.6 Chloride Level 107 Carbon Dioxide Level 28.9 Anion Gap 7 Blood Urea Nitrogen 7 Creatinine 1.28 Estimat Glomerular Filtration 56 Rate Random Glucose 106 Calcium Level 7.6 Magnesium Level 1.9 Radiology Last Impressions Aorta w/Runoff CTA 07/11/16 0000 Signed Impressions: Service Date/Time: Monday, July 11, 2016 04:14 - CONCLUSION: 1. Unremarkable off the lower extremities. 2. Gas in the soft tissues of the lower leg on the left which is characteristic of infection. This extends into the muscular compartment. MRI is recommended for further evaluation if clinically indicated. Abdullahi Martinez MD Narrative Exam GENERAL: This is a 66-year-old male OOB in a chair and in no distress. SKIN: Warm and dry. LEFT lower extremity with wound VAC noted to LEFT inner calf. Outer LEFT leg with staple line in the shape of a backwards question juan. Small open area to middle of staple line with wet to dry dressing in place. HEAD: Atraumatic. Normocephalic. EYES: PERRLA ENT: No nasal bleeding or discharge. Mucous membranes pink and moist. NECK: Trachea midline. No JVD. CARDIOVASCULAR: Regular rate and rhythm. RESPIRATORY: No accessory muscle use. Lungs are clear to auscultation. Breath sounds equal bilaterally. No distress or dyspnea. GASTROINTESTINAL: BS + x 4 quads. Abdomen soft, non-tender, nondistended. MUSCULOSKELETAL: Extremities without cyanosis, or edema. LEFT calf is swollen compared to the right . + peripheral pulses x 4 extremities. Warm with good capillary refill and sensation. MAEW. Patient is able to flex the LEFT foot more today. NEUROLOGICAL: Awake and alert. Normal speech and pattern. A/P Problem List: (1) Alcohol abuse (2) Weakness of left foot (3) Leg wound, left (4) HTN (hypertension) Assessment and Plan [place]: This is a 66-year-old male who states he sustained a fall down the stairs. Positive EtOH = 277 INJURIES: LARGE LEFT lower leg open wound with exposed tendon / muscle - ( extensive damage - but no vascular damage.) Consults: Hospitalist Diet: Regular diet. Tolerating po diet. Encourage good po intake with each meal. Pulmonary: Encourage good pulmonary toileting. IS and acapella at bedside and pt encouraged to use. Rationale for use explained to patient, and verbalized understanding. Added EZpap. (Patient had a postop fever; additional pulmonary toileting exercises will assist with possible atelectasis) PAIN Management: [place] po q 4 hrs. Dilaudid IV for breakthrough pain. (Ativan and Librium) Activity: OOB ad ilya. (WBAT LLE) PT ordered for 7 days a week while he is in the hospital. GI prophylaxis: Pepcid HS Bowel regimen: Colace and MOM. 0 BM. Intensified with lactulose 1. DVT prophylaxis: Mechanical VTE with SCDs. Chemical management with Lovenox SQ. DC Planning: Case management consulted for assistance with final discharge disposition. Home health care is being arranged. (Completed wound VAC application.) Wound VAC dressing change prepared for tomorrow on rounds to evaluate wound, and plan for discharge timeframe. AVX: Ampicillin IV and Cleocin 3 times a day. Emotional support provided to patient at bedside and plan of care discussed. Discussed with RN at bedside Patient is hemodynamically stable and being managed on the med/surg floor. The exam, history, and the medical decision-making described in the above note were completed with the assistance of the mid-level provider. I reviewed and agree with the findings presented. I attest that I had a urnw-wj-shqk encounter with the patient on the same day, and personally performed and documented my assessment and findings in the medical record. Problem Qualifiers (1) Leg wound, left: Qualified Code: S81.802A - Leg wound, left, initial encounter (2) HTN (hypertension): Qualified Code: I10 - Essential hypertension Jessica Ramos Jul 14, 2016 11:52 Michael Yuen MD Jul 17, 2016 08:18
[2016-07-14 11:58] VITALS: BP 118/62; PULSE 75; RESP 17; TEMP 99.1; O2SAT 99
[2016-07-14] MEDS ORDERED: MILKSUS PO (12:26)
[2016-07-14] MEDS ORDERED: DOCU1CAP39 PO (12:26)
[2016-07-14 16:00] VITALS: BP 118/71; PULSE 83; RESP 16; TEMP 98.1; O2SAT 95
[2016-07-14 20:00] VITALS: BP 131/67; PULSE 87; RESP 20; TEMP 97.8; O2SAT 96
[2016-07-14] MEDS: FAMOTIDINE 20 MG TAB PO SCH (21:49)
[2016-07-15] VITALS: BP 133/66; PULSE 80; RESP 20; TEMP 98; O2SAT 99
[2016-07-15] MEDS: AMPICILLIN/SULBAC 3 GM/NS 100 ML IV SCH ×4 (04:07→11:38)
[2016-07-15] MEDS: CLINDAMYCIN 150 MG CAP PO SCH ×2 (06:12→12:49)
[2016-07-15] MEDS: chlordiazePOXIDE 25 MG CAP PO SCH ×2 (07:36→12:49)
[2016-07-15] MEDS: DOCUSATE SODIUM 100 MG CAP PO SCH (07:36)
[2016-07-15] MEDS: ACETAMINOPHEN/HYDROcodone 325 MG/5 MG TAB PO PRN ×2 (07:37→11:46)
[2016-07-15 08:00] VITALS: BP 104/65; PULSE 82; RESP 19; TEMP 99.5; O2SAT 92
[2016-07-15] MEDS ORDERED: BISACODYL 10 MG SUPP RECTAL ONE (08:15)
[2016-07-15] MEDS ORDERED: BISACODYL EC 5 MG TABEC PO ONE (08:15)
[2016-07-15] MEDS ORDERED: PERC5TAB12 PO (10:36)
--- NOTE | 2016-07-15 10:38 | HHI.FF ---
Face to Face Verification Diagnosis: (1) Alcohol abuse (2) Leg wound, left (3) HTN (hypertension) (4) Weakness of left foot Physical Therapy Order: Evaluate and Treat, Improve ambulation, Strength and gait training Home Health Nursing Order: Medical education Signs/symptoms of disease process Medication education-adverse effect Wound care and dressing changes (wound vac changes WEDNESDAY, WEDNESDAY and WEDNESDAY) Nursing assessment with vital signs I have seen patient Luis Felipe Melo on 07/15/16. My clinical findings support the need for the requested home health care services because: Ltd mobility - disease progression Deconditioned w/ increased weakness Limited ability to care for self High risk of falls Infection w/ risk of complications I certify that my clinical findings support that this patient is homebound because: Post-op weakness Unsteady gait/balance Unsafe to leave home unassisted Sfw-tnqodlxfai-zwocmrdz bed/chair Jessica Ramos Jul 15, 2016 10:38
[2016-07-15] MEDS ORDERED: AUGM500T7 PO (11:17)
[2016-07-15] MEDS: ENOXAPARIN SODIUM 30 MG/0.3 ML SYRINGE SQ SCH (11:39)
[2016-07-15 12:00] VITALS: BP 132/72; PULSE 70; RESP 18; TEMP 97.5; O2SAT 99
--- NOTE | 2016-07-15 13:29 | HHI.DS ---
Discharge Summary Admission Date Jul 11, 2016 at 07:54 Discharge Date: Jul 15, 2016 Admitting Diagnosis Leg wound (1) Alcohol abuse (2) Weakness of left foot Diagnosis: Principal (3) Leg wound, left Diagnosis: Principal (4) HTN (hypertension) Diagnosis: Principal Brief History Fall. CBC/BMP: 07/14/1631307/14/16313 Significant Findings Laboratory Tests Test 07/14/16 03:14 Red Blood Count 2.64 MIL/MM3 (4.50-5.90) Hemoglobin 8.8 GM/DL (13.0-17.0) Hematocrit 25.7 % (39.0-51.0) Monocytes (%) (Auto) 9.1 % (0.0-8.0) Eosinophils (%) (Auto) 4.7 % (0.0-4.0) Estimat Glomerular Filtration 56 ML/MIN (>89) Rate Calcium Level 7.6 MG/DL (8.5-10.1) PE at Discharge GENERAL: This is a 66-year-old male OOB in a chair and in no distress. SKIN: Warm and dry. LEFT lower extremity with wound VAC noted to LEFT inner calf. Outer LEFT leg with staple line in the shape of a backwards question juan. Small open area to middle of staple line with wet to dry dressing in place. HEAD: Atraumatic. Normocephalic. EYES: PERRLA ENT: No nasal bleeding or discharge. Mucous membranes pink and moist. NECK: Trachea midline. No JVD. CARDIOVASCULAR: Regular rate and rhythm. RESPIRATORY: No accessory muscle use. Lungs are clear to auscultation. Breath sounds equal bilaterally. No distress or dyspnea. GASTROINTESTINAL: BS + x 4 quads. Abdomen soft, non-tender, nondistended. MUSCULOSKELETAL: Extremities without cyanosis, or edema. LEFT calf is swollen compared to the right . + peripheral pulses x 4 extremities. Warm with good capillary refill and sensation. MAEW. Patient is able to flex the LEFT foot more today. NEUROLOGICAL: Awake and alert. Normal speech and pattern. Hospital Course This is a 66-year-old male who stated he fell down the stairs. He was positive for EtOH. (There is great question that his injury was actually from a dog bite.) INJURIES: LARGE LEFT lower leg open wound with exposed tendon / muscle - (extensive damage - but no vascular damage.) 1/14: Wash out and closure of LEFT leg w/ wound vac. The patient is now tolerating a po diet. Eating and drinking well. Pain is being managed well with PO pain medications, and patient is being a provided with a script for pain meds upon discharge. (NO driving while taking narcotic pain medication enforced to patient.) Pt is having regular bowel movements, and have recommended to patient to continue with stool softeners while taking narcotic pain medications. Pt has been participating in aggressive daily PT while admitted at [place] and has been ambulating with their assistance and independently . Patient will continue with home PT 3 days a week. All follow up appointments have been provided and discussed with the patient. It is recommended that the patient keeps all his follow up appointments for continued recovery. Home health has been arranged, and patient will receive wound VAC dressing changes to his left lower leg 3 times a week. (MON. WED. FRI.) Additionally, he has been provided a prescription for antibiotics. Therefore, the patient is stable to be safely discharged home with [facility] from a trauma surgery standpoint. Thank you for allowing us to participate in his care. We wish [place] the best in his recovery. Pt Condition on Discharge: Stable Discharge Disposition: Disch w/ Home Health Serv Discharge Instructions DIET: Follow Instructions for: As Tolerated, No Restrictions Activities you can perform: Weight Bearing as Marine Activities to Avoid: Concussion Sports, Contact Sports, Prolonged Standing, Strenuous Activity, Driving Jessica Ramos Jul 15, 2016 13:29
--- NOTE | 2016-09-02 10:47 | MP ---
cc: ACE YUEN DATE OF SURGERY: 07/11/2016 DATE OF : 1950 PREOPERATIVE DIAGNOSIS Complex wound, left leg. POSTOPERATIVE DIAGNOSIS Complex wound, left leg. PROCEDURE Left leg wound exploration with partial closure and VAC placement. SURGEON Ace Yuen ANESTHESIA General endotracheal. ESTIMATED BLOOD LOSS Scant. INDICATION This is a patient who by reports fell down stairs injuring his left calf muscle. He was brought to the operating room for exploration with closure after obtaining informed consent. FINDINGS Complex wound involving the superficial and deep muscles of the calf, swelling to the muscle laterally. As a result the wound was not was not completely closed and a VAC dressing was placed on the lateral aspect. SPECIMENS None. COMPLICATIONS None. OPERATION The patient was brought to the operating room and placed on the operating table in a supine position. A bilateral sequential inflation device was placed on the right lower extremity. General anesthesia was instituted. The left leg was prepped and draped sterilely. The wound was explored. There was destruction to the muscle of the calf. The nerves in this region were not visualized. There was no active bleeding. There was some swelling to the muscle as well. The investing fascia of the muscle was approximated with 3-0 Vicryl. The lateral component was left open. The skin and subcuticular tissue posteriorly was approximated with first 3-0 Vicryl and then xenia. A VAC dressing was placed on the lateral component and connected to a 125 mmHg. At this point the operation was terminated. The patient was awakened and taken to the recovery room. MD RACHELL Simon/MARIA EUGENIA /8:36 AM /10:33 AM
== END 2016-07-15 14:43 | disposition home or self-care (01) | DRG 581 ==
LOC: NEPE 02:30 → NEDH 07:54 → N07A 11:38
PROVIDERS: ADMIT Surgery; ATTEND Surgery
PROC: 0JQP0ZZ Repair Left Lower Leg Subcutaneous Tissue and Fascia, Open Approach (ICD-10-PCS; 2016-07-11)
PROC: 5A09357 Assistance with Respiratory Ventilation, Less than 24 Consecutive Hours, Continuous Positive Airway Pressure (ICD-10-PCS; principal; 2016-07-12)
DX: S81.812A Laceration without foreign body, left lower leg, initial encounter (principal); I10 Essential (primary) hypertension; W10.9XXA Fall (on) (from) unspecified stairs and steps, initial encounter; Y93.9 Activity, unspecified; Y92.008 Other place in unspecified non-institutional (private) residence as the place of occurrence of the external cause; F41.9 Anxiety disorder, unspecified; M54.9 Dorsalgia, unspecified; G89.29 Other chronic pain; Z85.828 Personal history of other malignant neoplasm of skin; F10.10 Alcohol abuse, uncomplicated; Y90.8 Blood alcohol level of 240 mg/100 ml or more; R50.82 Postprocedural fever; R53.1 Weakness
CPT/HCPCS: 71010; 75635; 80048; 80053; 80320; 83735; 85025; 85027; 93005; 94150; 94640; 94667; 94668; 96365; 96375; 96376; C9113; J0295; J1650; J1885; J2270; J2370; J2405; J3010; J3411; J7030; J7040; J7120; Q9967

== ENCOUNTER 2016-07-15 21:53 | Emergency (ER) | payer MEDICARE ==
[~2016-07-15] VITALS: Ht 172.7 cm; Wt 68.0 kg
[~2016-07-15 21:53] MED LIST: ALPR.5 PO; AMLO5TAB2 PO; AUGM500T7 PO; DOCU1CAP39 PO; HYDR-3535 PO; LISI40TA PO; MILKSUS PO; PERC5TAB12 PO; WALKER WHEELS/F1 MIS
[2016-07-15 21:55] VITALS: BP 176/86; PULSE 88; RESP 18; TEMP 97.9; O2SAT 99
[2016-07-16 01:07] VITALS: BP 175/94; PULSE 83; RESP 18; O2SAT 100
--- NOTE | 2016-07-16 01:46 | PD ---
HPI . Recheck of wound on his left lower extremity Chief Complaint: Wound/Suture/Staple Re-Check Time Seen by Provider: 01:18 Travel History International Travel<30 days: No Contact w/Intl Traveler<30days: No Traveled to known affect area: No History of Present Illness HPI Patient presents stating that he is having problems with the wound on his left leg. He states that his dressing inadvertently came off and he was unable to get back on correctly. He states that his wound VAC is making a funny noise. He denies any fever. He denies any unusual drainage from the wound. PFSH Past Medical History Cardiovascular Problems: Yes (HTN) Hypertension: Yes Tetanus Vaccination: < 5 Years Past Surgical History Neurologic Surgery: Yes (TMV) Social History Alcohol Use: Yes (6 beers daily) Tobacco Use: Yes Substance Use: Yes (marijuna) Allergies-Medications (Allergen,Severity, Reaction): Coded Allergies: Erythromycin (Verified Allergy, Unknown, 07/15/16) Reported Meds & Prescriptions Reported Meds & Active Scripts Active Augmentin (Amoxicillin-Clavulanate) 500-125 mg Tab 500 Mg PO Q8H 7 Days Percocet (Oxycodone-Acetaminophen) 5-325 mg Tab 1 Tab PO Q4H PRN Milk of Magnesia Liq (Magnesium Hydroxide) 400 Mg/5 Ml Susp 30 Ml PO Q6H PRN 30 Days Dok (Docusate Sodium) 100 Mg Cap 100 Mg PO BID 30 Days Walker with Front Wheels (Device) 1 Mis Mis 1 Ea .ROUTE DIRECTED Reported Amlodipine (Amlodipine Besylate) 5 Mg Tab 5 Mg PO DAILY Lisinopril 40 Mg Tab 40 Mg PO DAILY Xanax (Alprazolam) 0.5 Mg Tab 0.5 Mg PO BID PRN Lortab (Hydrocodone-Acetaminophen) 10-325 Mg Tab 1 Tab PO Q6H PRN Review of Systems Except as stated in HPI: all other systems reviewed are Neg General / Constitutional: No: Fever, Chills Musculoskeletal: Positive: Myalgias (left lower extremity), Edema (left lower extremity) Skin: Positive Other (large wounds on the left lower extremity) Physical Exam Narrative GENERAL: Awake and alert and in no acute distress. SKIN: Warm and dry. He has repaired wounds on the lateral aspect of the left lower extremity there is no drainage noted from the wound. The surrounding skin does not seem to be unusually red or hot. He has a wound VAC on the medial aspect of the left lower extremity. HEAD: Atraumatic. Normocephalic. EYES: Pupils equal and round. ENT: No nasal bleeding or discharge. Mucous membranes pink and moist. NECK: Trachea midline. CARDIOVASCULAR: Regular rate and rhythm. RESPIRATORY: No accessory muscle use. MUSCULOSKELETAL: No obvious deformities. Swelling of the left leg. He is able to dorsi and plantar flex the foot. NEUROLOGICAL: Awake and alert. No obvious cranial nerve deficits. Motor grossly within normal limits. Normal speech. PSYCHIATRIC: Appropriate mood and affect; insight and judgment normal. Data Data Last Documented VS Vital Signs Date Time Temp Pulse Resp B/P Pulse Ox O2 Delivery O2 Flow Rate FiO2 07/16/16 01:07 83 175/94 100 Room Air 07/15/16 21:55 97.9 18 Orders Wound Care (07/16/16 01:38) MDM Medical Decision Making Medical Screen Exam Complete: Yes Emergency Medical Condition: Yes Medical Record Reviewed: Yes (patient was admitted the hospital from for a large left leg wound. The etiology of the wound is actually unknown as the patient was intoxicated at the time. He was discharged on antibiotics with the wound VAC and home health.) Differential Diagnosis Differential diagnosis includes but is not limited to routine wound healing, wound infection, cellulitis Narrative Course Patient presents with a problem with a left lower extremity wound. The wound appears to be doing well clinically. It is a very large wound that does not have the clinical appearance of infection. That is, there is no drainage from the wound. There is no unusual redness. The patient is afebrile. Diagnosis Primary Impression: Leg wound, left Qualified Code: S81.802D - Leg wound, left, subsequent encounter Disposition: DISCHARGE HOME Condition: Stable Melony Mcghee MD Jul 16, 2016 01:46
[2016-07-16 02:14] VITALS: BP 141/66; PULSE 78; RESP 20; O2SAT 99
== END 2016-07-16 02:29 | disposition home or self-care (01) ==
LOC: NEPC 21:53
DX: S81.802D Unspecified open wound, left lower leg, subsequent encounter (principal); I10 Essential (primary) hypertension; Z72.0 Tobacco use; X58.XXXD Exposure to other specified factors, subsequent encounter
CPT/HCPCS: 99282